=== PATIENT | male | born 1995 | race Caucasian/White ===

== ENCOUNTER → 2020-08-08 | Outpatient (CLI) | payer OTHER ==
[2020-08-08 17:58] LABS: microscopic required? NO
[2020-08-08 18:03] LABS: urine erythrocyte NEGATIVE (NEGATIVE)
[2020-08-08 18:18] LABS: BASOPHIL % 0.7 % (0-2); PLATELET COUNT 255 x10^3mcL (130-400); RED CELL DISTRIBUTION WIDTH 14.4 % (11.5-14.5)
[2020-08-08 18:27] LABS: ALBUMIN 4.5 g/dL (3.4-5.0); ALKALINE PHOSPHATASE 72 U/L (46-116); ALT/SGPT 46 U/L (16-63); AST/SGOT 26 U/L (15-37); BILIRUBIN TOTAL 0.9 mg/dL (0.20-1.00); CALCIUM 8.8 mg/dL (8.5-10.1); CARBON DIOXIDE 31.7 mmol/L (21-32); CHLORIDE SERUM 102 mmol/L (98-107); CHOLESTEROL 165 mg/dL (<200); CREATININE SERUM 1.4 mg/dL (0.7-1.3); GFR1 > 60 mL/min; GLUCOSE SERUM 88 mg/dL (74-106); POTASSIUM SERUM 4.1 mmol/L (3.5-5.1); SODIUM SERUM 138 mmol/L (136-145); TOTAL PROTEIN, SERUM 7.2 g/dL (6.4-8.2); TRIGLYCERIDES 45 mg/dL (<150)
[2020-08-08 18:28] LABS: CHOLESTEROL/HDL RATIO 2.5; HDL CHOLESTEROL 67 mg/dL (40-60)
== END | disposition home or self-care (01) ==
LOC: LB 16:47
PROC: BH48ZZZ Ultrasonography of Lower Extremity (ICD-10-PCS; principal; 2020-08-08)
DX: Z00.01 Encounter for general adult medical examination with abnormal findings (principal); Z11.3 Encounter for screening for infections with a predominantly sexual mode of transmission
CPT/HCPCS: 87491; 87591